=== PATIENT | female | born 1985 | race Caucasian/White ===

== ENCOUNTER 2020-04-03 15:20 | Emergency (ER) | payer MEDICAID ==
[2020-04-03 15:57] LABS: MUDS CUTOFF CONCENTRATIONS CUTOFF CONC BELOW:
[2020-04-03 15:59] LABS: BASOPHILS % (AUTO) 0.3 %; EOSINOPHILS % (AUTO) 0.3 %; HGB - HEMOGLOBIN 14.2 g/dL (12.0-16.0); LYMPHOCYTES # (AUTO) 1.6 10^3/uL (1.5-3.5); LYMPHOCYTES % (AUTO) 21.1 %; MEAN CORPUSCULAR HGB CONC 33.5 g/dL (32.0-36.0); MEAN CORPUSCULAR VOLUME 89.6 fL (81.0-99.0); MONOCYTES # (AUTO) 0.5 10^3/uL (0.0-1.0); MONOCYTES % (AUTO) 7.1 %; NEUTROPHILS # (AUTO) 5.4 10^3/uL (1.5-6.6); NEUTROPHILS % (AUTO) 70.8 %; PLT - PLATELET COUNT 219 10^3/uL (130-450); RED BLOOD COUNT 4.73 10^6/uL (4.20-5.40); RED CELL DISTRIBUTION WIDTH 12.4 % (12.0-15.0); WHITE BLOOD COUNT 7.6 x10^3/uL (4.8-10.8)
[2020-04-03 16:00] LABS: BILIRUBIN,URINE NEGATIVE (NEGATIVE); GLUCOSE, URINE (UA) NEGATIVE (NEGATIVE); KETONES,URINE (UA) 40 mg/dL (NEGATIVE); LEUKOCYTE ESTERASE, URINE NEGATIVE (NEGATIVE); NITRITE,URINE NEGATIVE (NEGATIVE); OCCULT BLOOD,URINE TRACE-LYSE (NEGATIVE); PROTEIN,URINE NEGATIVE (NEGATIVE); UROBILINOGEN,URINE 0.2 (NORMAL) E.U./dL (NORMAL)
[2020-04-03 16:02] LABS: CLARITY,URINE CLEAR (CLEAR); HCG UR QUAL POSITIVE
[2020-04-03 16:11] LABS: AMPHETAMINE SCREEN,URINE NEGATIVE (NEGATIVE); BENZODIAZEPINES SCREEN, URINE NEGATIVE (NEGATIVE); COCAINE SCREEN URINE NEGATIVE (NEGATIVE); METHADONE SCREEN, URINE NEGATIVE (NEGATIVE); METHAMPHETAMINES SCREEN, URINE NEGATIVE (NEGATIVE); OPIATE SCREEN, URINE NEGATIVE (NEGATIVE); OXYCODONE SCREEN, URINE NEGATIVE (NEGATIVE); PROPOXYPHENE SCREEN, URINE NEGATIVE (NEGATIVE); TRICYCLIC ANTIDEPRESSANT,URINE NEGATIVE (NEGATIVE)
--- NOTE | 2020-04-03 16:15 | ED Physician Documentation ---
History of Present Illness - Stated complaint Stated Complaint: SI/6 WEEKS - Chief complaint Chief Complaint: MHE - History obtained from History obtained from: Patient - History of Present Illness Timing: Today Pain level max: 0 Pain level now: 0 - Additonal information Additional information: 34-year-old female presents to the emergency department stating she has been feeling suicidal recently. Recently found out she is . Believes she is about 6 weeks . No vaginal bleeding or discharge. No abdominal or pelvic pain. Nothing makes it better or worse. Has felt suicidal recently. never been hospitalized. Increase stress at home. Review of Systems Ten Systems: 10 systems reviewed and negative Constitutional: denies: Fever, Chills GI: denies: Nausea, Vomiting, Diarrhea : reports: Now EGA Skin: denies: Rash Musculoskeletal: denies: Neck pain, Back pain Neurologic: denies: Headache PD PAST MEDICAL HISTORY - Past Medical History Past Medical History: No - Past Surgical History Past Surgical History: No - Allergies Allergies/Adverse Reactions: Allergies Allergy/AdvReac Type Severity Reaction Status Date / Time hydrocodone Allergy Emesis Verified 04/03/20 15:38 - Living Situation Living Situation: reports: With family Living Arrangement: reports: At home - Social History Does the pt smoke?: No Does the pt drink ETOH?: No Does the pt have substance abuse?: No - Family History Family history: reports: Non contributory PD ED PE NORMAL - Vitals Vital signs reviewed: Yes - General General: Alert and oriented X 3, Well developed/nourished, Other (tearful, anxious) - HEENT HEENT: PERRL - Neck Neck: Supple, no meningeal sign - Cardiac Cardiac: RRR, Strong equal pulses - Respiratory Respiratory: No respiratory distress, Clear bilaterally - Abdomen Abdomen: Soft, Non tender, Non distended - Derm Derm: Warm and dry, No rash - Extremities Extremities: No edema, No calf tenderness / cord - Neuro Neuro: Alert and oriented X 3, field contact person 2-12 intact, No motor deficit, No sensory deficit, Normal speech - Psych Psych: Normal mood, Normal affect Results - Vitals Vitals: Vital Signs - 24 hr 04/03/20 04/03/20 15:31 17:00 Temperature 37.2 C 37 C Heart Rate 89 79 Respiratory 24 18 Rate Blood Pressure 109/74 106/80 O2 Saturation 97 100 Oxygen O2 Source Room air - EKG (time done) 1801 Rate: Rate (enter#) (83) Rhythm: NSR Plaza: Normal Intervals: Normal TX QRS: Normal Ischemia: Normal ST segments - Labs Labs: Laboratory Tests 04/03/20 04/03/20 04/03/20 15:44 15:53 15:53 WBC 7.6 RBC 4.73 Hgb 14.2 Hct 42.4 MCV 89.6 MCH 30.0 MCHC 33.5 RDW 12.4 Plt Count 219 MPV 10.0 Neut # (Auto) 5.4 Lymph # (Auto) 1.6 [place] # (Auto) 0.5 Eos # (Auto) 0.0 Baso # (Auto) 0.0 Absolute Nucleated RBC 0.00 Nucleated RBC % 0.0 Sodium 136 Potassium 3.7 Chloride 105 Carbon Dioxide 20 L Anion Gap 11.0 BUN 10 Creatinine 0.6 Estimated GFR (MDRD) 114 Glucose 93 Calcium 9.2 Total Bilirubin 1.3 H AST 18 ALT 14 Alkaline Phosphatase 39 L Total Protein 7.4 Albumin 4.4 Globulin 3.0 Albumin/Globulin Ratio 1.5 Lipase 26 TSH HCG, Quant Urine Color YELLOW Urine Clarity CLEAR Urine pH 6.0 Ur Specific [place] 1.025 Urine Protein NEGATIVE Urine Glucose (UA) NEGATIVE Urine Ketones 40 H Urine Occult Blood TRACE-LYSE Urine Nitrite NEGATIVE Urine Bilirubin NEGATIVE Urine Urobilinogen 0.2 (NORMAL) Ur Leukocyte Esterase NEGATIVE Ur Microscopic Review NOT INDICATED Urine Culture Comments NOT INDICATED Urine HCG, Qual POSITIVE Salicylates < 6.0 Urine Opiates Screen NEGATIVE Ur Oxycodone Screen NEGATIVE Urine Methadone Screen NEGATIVE Ur Propoxyphene Screen NEGATIVE Acetaminophen < 10 L Ur Barbiturates Screen NEGATIVE Ur Tricyclics Screen NEGATIVE Ur Phencyclidine Scrn NEGATIVE Ur Amphetamine Screen NEGATIVE U Methamphetamines Scrn NEGATIVE U Benzodiazepines Scrn NEGATIVE Urine Cocaine Screen NEGATIVE U Cannabinoids Screen POSITIVE H Ethyl Alcohol < 5.0 04/03/20 04/03/20 15:53 15:53 WBC RBC Hgb Hct MCV MCH MCHC RDW Plt Count MPV Neut # (Auto) Lymph # (Auto) [place] # (Auto) Eos # (Auto) Baso # (Auto) Absolute Nucleated RBC Nucleated RBC % Sodium Potassium Chloride Carbon Dioxide Anion Gap BUN Creatinine Estimated GFR (MDRD) Glucose Calcium Total Bilirubin AST ALT Alkaline Phosphatase Total Protein Albumin Globulin Albumin/Globulin Ratio Lipase TSH 1.18 HCG, Quant 02818.00 Urine Color Urine Clarity Urine pH Ur Specific [place] Urine Protein Urine Glucose (UA) Urine Ketones Urine Occult Blood Urine Nitrite Urine Bilirubin Urine Urobilinogen Ur Leukocyte Esterase Ur Microscopic Review Urine Culture Comments Urine HCG, Qual Salicylates Urine Opiates Screen Ur Oxycodone Screen Urine Methadone Screen Ur Propoxyphene Screen Acetaminophen Ur Barbiturates Screen Ur Tricyclics Screen Ur Phencyclidine Scrn Ur Amphetamine Screen U Methamphetamines Scrn U Benzodiazepines Scrn Urine Cocaine Screen U Cannabinoids Screen Ethyl Alcohol - Rads (name of study) OB US Radiology: Prelim report reviewed, EMP read contemporaneously, See rad report (1. [place] living intrauterine at 5 weeks 6 days based on today's crown-rump length. heart rate 101 bpm. This is concerning for bradycardia in this early fetus. -Recommend follow-up OB ultrasound. 2. No perigestational hemorrhage. ) PD MEDICAL DECISION MAKING - ED course Complexity details: reviewed results, re-evaluated patient, considered differential, d/w patient, d/w law firm consultant ED course: 34-year-old female with suicidal ideation and depression. She is 6 weeks . Social work was consulted and evaluated the patient. She is voluntary for psychiatric care. She is at high risk for suicide, therefore if she were to change her mind, I would consider her involuntary and have the DCR evaluate her. Patient signed out to the [facility] emergency department physician. Departure - Departure Clinical Impression: Suicidal ideation Depression Qualifiers: Depression Type: unspecified Qualified Code(s): F32.9 - Major depressive disorder, single episode, unspecified Qualifiers: Weeks of gestation: less than 8 weeks Qualified Code(s): Z3A.01 - Less than 8 weeks gestation of Condition: Stable
[2020-04-03 16:22] LABS: ACETAMINOPHEN < 10 ug/mL (10-30); ALBUMIN 4.4 g/dL (3.2-5.5); ALBUMIN/GLOBULIN RATIO 1.5 (1.0-2.2); ALKALINE PHOSPHATASE 39 IU/L (42-121); ALT ALANINE AMINOTRANSFERASE 14 IU/L (10-60); AST ASPARTATE AMINOTRANSFERASE 18 IU/L (10-42); BILIRUBIN,TOTAL 1.3 mg/dL (0.2-1.0); BUN - BLOOD UREA NITROGEN 10 mg/dL (6-20); CALCIUM 9.2 mg/dL (8.5-10.3); CARBON DIOXIDE - CO2 20 mmol/L (21-32); CHLORIDE 105 mmol/L (101-111); CREATININE 0.6 mg/dL (0.4-1.0); GLUCOSE 93 mg/dL (70-100); LIPASE 26 U/L (22-51); SALICYLATE < 6.0 mg/dL; SODIUM 136 mmol/L (135-145); TOTAL PROTEIN 7.4 g/dL (6.7-8.2)
--- NOTE | 2020-04-03 19:42 | Ultrasound Report ---
PROCEDURE: OB First Trimester w/TV INDICATIONS: approx 6 weeks preg, pelvic pain OUTSIDE/PRIOR DATING DATA: Last menstrual period (LMP): Unknown. LMP-based estimated date of delivery (FRANK): Unknown. First dating scan (date and location): 04/03/2020. Estimated date of delivery (FRANK) from first dating scan: 07/31/2019. TECHNIQUE: Real-time scanning was performed of the fetus and maternal pelvic organs, with image documentation. Endovaginal scanning was also performed to better visualize the fetus and maternal ovaries. COMPARISON: None. FINDINGS: Embryo: [place]-rump length measuring 0.24 cm, gestational age 5 weeks 6 days. heart rate 101 BP M. Yolk sac is seen. No perigestational hemorrhage. Measurement variability in dating: +/- 4 weeks by LMP, +/- 7 days by mean sac diameter (use before 6 weeks gestation if crown-rump length not able to be measured), +/- 5 days by crown-rump length (6-12 weeks gestation). Maternal organs: Ovaries are within normal limits. Right ovarian anechoic cyst measuring 3.2 x 2.8 x 1.7 cm. Left corpus luteum measuring at 2.2 x 1.9 x 1 cm. IMPRESSION: 1. [place] living intrauterine at 5 weeks 6 days based on today's crown-rump length. Feta l heart rate 101 bpm. This is concerning for bradycardia in this early fetus. -Recommend follow-up OB ultrasound. 2. No perigestational hemorrhage. Reviewed by: Ezequiel Treviño MD on 04/03/2020 7:41 PM PDT Approved by: Ezequiel Treviño MD on 04/03/2020 7:41 PM PDT Station ID: [id number]
[2020-04-04] MEDS ORDERED: FAMOTIDINE 20 MG TABLET PO STA (01:23)
[2020-04-04] MEDS ORDERED: ONDANSETRON ODT 4 MG TABLET TL STA (06:05)
--- NOTE | 2020-04-04 19:29 | ED Physician Documentation ---
ED Addendum - Addendum Addendum: 04/04/20 19:29 34-year-old woman presented with suicidal ideation and plan, early without complication by ultrasound. Seen extensively by social work, patient voicing wanting to leave. This caused concern about her safety and subsequently a telepsychiatric consultation was done and I spoke with the psychiatrist who felt that given the circumstances she should be detained and evaluated by the DCR for an CHANEL. 04/04/20 20:06 I discussed the above with the patient and her . Neither were happy with the prospect of involuntary fpc. They are understanding though.
--- NOTE | 2020-04-04 19:51 | TELEPSYCH PHYS NOTE ---
Telepsych Note - CHIEF COMPLAINT/HX OF PRESENT ILLNESS Cheif Complaint and History of Present Illness: Name: Ameena Rider : 85 Date: 03/17/20 Time: 10:10pm Location of patient: [facility] Location of doctor: [facility] Length of consult: 40min This evaluation was conducted via telepsychiatry with the assistance of onsite staff Chief Complaint: SI with plans History of Present Illness: Pt seen via televideo with the help of onsite staff. Pt is a 34 yo female with hx of depression, anxiety. She reports a traumatic childhood. Pt presented to the hospital yesterday, BIB after she reported to her , suicidal thoughts with specific plan. She reported a several month period of worsening depressive sxs including intermittent SI. She reported to staff that the thoughts intensified over the past week. In the ED she was noted to be extremely tearful and emotional. Noted to staff SWer ongoing suicidality with plan(s). She reported potential plans to jump [place] the [place], to overdose on pills or cut her wrist. Pt was initially voluntary for inpt treatment however per staff, requested discharge home today. Chart was reviewed and appreciated. Pt seen and evaluated. Pt is cooperative however minimizing earlier statements to SW and ED staff. She initially tells machine sign writer that she came in due to having a panic attack. She does not mention at all SI thoughts until referenced to b this machine sign writer. She minimizes stating the plans were just thoughts. She admits to worsening mood sxs due to multiple stressors: Stressors include: Adjusting to new job with variable night and day shifts unemployed Feels that she also feels she does much of the work maintaining the home as well. Recently found out that she is . States she believed that the may have actually be cancer. [place] unimportant. Covid Pandemic. Traumatic childhood Financial concerns. Pt states she was overwhelmed by all of her stressors. States she has experienced suicidal thoughts in her teens as well related to her traumatic childhood. Never attempted however thought of plans. States she never acted as she did not want to burden her family with the cost of a . States the protective factor currently to deter suicide is her . However also admits that her suicidal thoughts increased after she found out that she was . Spoke to the pts , Shanti via phone. He reports pt has made SI comments and threats in the past. She has also in the past picked up a knife. Typically, around arguments. States they have been arguing related to his unemployment. States she gets in her mind she is incapable of doing something and it is hard to change her mind. States he is unsure of why they argued yesterday. States he does not believe she will ultimately harm herself however states, it cant be healthy to feel this way. States he gets concerned when she is in a state that she cannot calm down or get the negative thoughts out of her head. On ROS, pt denies AVHs, delusions nor HI. Denies current SI, however initially presented to the hospital due to SI with specific plan. Pt now recanting farhad ier reported thoughts and requesting to go home. She is also minimizing her symptoms. She presents with multiple risk factors including multiple stressors with poor coping. Pt presents as a danger to herself ad requires acute inpt psychiatric admission for safety, stabilization and treatment. Pt is no longer voluntary for inpt treatment and requires screening for involuntary commitment. Collateral: Staff, EMR. Shanti, SEE HPI SI/attempts/Self harm: Prior ideation with plans. No attempts. HI/Violence: denies Trauma history: reports traumatic childhood Sex/human trafficking: none reported Access to guns: Denies Legal: denies Psychiatric History/Treatment History: outpt treatment in the past, no current outpt treatment. Drug/Alcohol History: cannabis Medical History: GERD, Ovarian Cyst, . Medications & Freq: none currently Allergies: hydrocodone Sleep: decreased, states she uses cannabis to help with sleep. Family Psych History/History of suicide: mother with depression, sister with bipolar disorder. No known family hx of suicidality. Social History Relationship status: Employment: employed Stressors: multiple with poor coping. Strengths/supports: Mental Status Exam: Appearance and attire: hospital attire Attitude and behavior: guarded Affect and mood: depressed/ constricted Association and thought processes: minimizing, omissions. Thought content: Denies delusions. Denies HI. Denies current SI however minimizing. Presented to the ED with SI with specific plan. Perception: Denies AVHs Sensorium, memory, and orientation: AxOx3 Intellectual functioning: average Insight and judgment: impaired. - SI/HI/SELF HARM SI/HI/SELF HARM (CURRENT OR HISTORY OF):: SI - PSYCHIATRIC HX/TREATMENT HX Psychiatric: Depression, Anxiety - DRUG/ALCOHOL HX Substance Use and Type: Marijuana - MEDICAL HX Does the pt have a hx of MRSA?: No Neurological History: None Eyes, Ears, Nose, Throat: None Cardiovascular: Valve disorder Respiratory: Asthma Skin: None Endocrine/Autoimmune: None Gastrointestinal: GERD Is Patient ?: Yes Urinary: None Musculoskeletal: None Blood Disorders: Anemia - ALLERGIES Allergies (as last confirmed): Allergies Allergy/AdvReac Type Severity Reaction Status Date / Time hydrocodone Allergy Emesis Verified 04/03/20 15:38 - TREATMENT/PHARMACOLOGICAL RECOMMENDATION Treatment - Pharmacological - Therapy Recommendations: Diagnosis: MDD, recurrent, severe, R/O PTSD Impression/Risk Assessment: Pt denies current SI, however initially presented to the hospital due to SI with specific plan. Pt now recanting earlier reported thoughts and requesting to go home. She is also minimizing her symptoms. She presents with multiple risk factors including multiple stressors with poor coping. Pt presents as a danger to herself ad requires acute inpt psychiatric admission for safety, stabilization and treatment. Pt is no longer voluntary for inpt treatment and requires screening for involuntary commitment. Treatment Recommendations: Pt requires acute inpt psychiatric admission For safety, stabilization and treatment Pt is NOT voluntary for inpt treatment and - TIME SPENT & PROVIDER LOCATION Telepsych consultation conducted via videoconferencing: Yes List names and roles of persons who participated in consult: shanti lerma stridiron Telepsych Provider Location: [place] Time Telepsych consult began: 22:00 Time Telepsych consult completed: 22:40
--- NOTE | 2020-04-04 21:56 | ED Physician Documentation ---
ED Addendum - Addendum Addendum: 04/04/20 21:54 DCR Alyssa Eli saw pt at length. She is not detaining her, therefore I cannot hold her against her will any longer. Alyssa will follow up with her personally as an outpatient. Disposition discharged home, condition stable, Diagnoses: 1. Early 2. Depression
[2020-04-04] MEDS ORDERED: METOCLOPRAMIDE 10 MG TABLET PO STA (21:59)
[2020-04-04 22:16] VITALS: BP 118/83
== END 2020-04-04 22:16 | disposition home or self-care (01) ==
LOC: ED 15:20
DX: O99.341 Other mental disorders complicating pregnancy, first trimester (principal); F33.2 Major depressive disorder, recurrent severe without psychotic features; R45.851 Suicidal ideations; Z3A.01 Less than 8 weeks gestation of pregnancy; Z20.828 Contact with and (suspected) exposure to other viral communicable diseases
CPT/HCPCS: 36415; 76801; 76817; 76857; 80320; 80329; 81003; 81025; 83690; 84702; 87635; 93005; 99284; 99285; A9270; Q0162; 80053; 80306; 80307; 81001; 84443; 85025; 87086

== ENCOUNTER 2020-04-07 10:58 | Outpatient (CLI) | payer MEDICAID | END 2020-04-07 10:59 | disposition critical access hospital (66) | LOC: EMS 10:58 | PROVIDERS: ATTEND Surgery | DX: O99.891 Other specified diseases and conditions complicating pregnancy (principal); R45.851 Suicidal ideations; O99.341 Other mental disorders complicating pregnancy, first trimester; Z3A.01 Less than 8 weeks gestation of pregnancy | CPT/HCPCS: A0425; A0429; A0999 ==

== ENCOUNTER 2020-04-07 11:19 | Emergency (ER) | payer MEDICAID ==
--- NOTE | 2020-04-07 11:45 | ED Physician Documentation ---
History of Present Illness - Stated complaint Stated Complaint: SI - Chief complaint Chief Complaint: MHE - History obtained from History obtained from: Patient - History of Present Illness Timing: Prior to arrival - Additonal information Additional information: 34-year-old female presents the emergency department for evaluation of thoughts that are racing out of control. She reports to me that she does not deserve her life, or her . She is afraid that should she lose her she will lose her entire life. She denies thoughts of wanting to but cannot control her emotions anymore. She was seen here about 4 days ago over the weekend for thoughts of self-harm. At the time of initial evaluation, a telepsych consult was done. Though the patient initially presented as voluntary she later recanted. Tele-psych felt that they were to many risk factors for her to contract for safety therefore DCR was contacted. Once DCR evaluated the patient they felt that she did not meet the criteria for involuntary placement and at that point patient was dc home Since being discharged home the patient reports that she was unable to speak with the counselor until late yesterday evening. This morning she and her had an argument and felt her emotions were out of control. The counselor then called 911 and patient was brought into the ER for further evaluation. At the time of my evaluation patient is very tearful and guarded. She does report to me however that she wishes to be voluntarily placed at a psychiatric treatment hospital in order to ensure that she remains safe, that her can continue and so that she can get control of her thoughts and emotions Patient denies lower pelvic pain vaginal bleeding cramping or loss of fluids. An OB ultrasound completed 04/03/2020 showed that she was approximately 5 weeks 6 days with IUP. Review of Systems Constitutional: denies: Fever, Chills Eyes: reports: Reviewed and negative Nose: reports: Reviewed and negative Throat: reports: Reviewed and negative Cardiac: reports: Reviewed and negative Respiratory: reports: Dyspnea GI: reports: Nausea. denies: Abdominal Swelling, Vomiting, Constipation, Diarrhea : reports: Reviewed and negative Skin: reports: Reviewed and negative Musculoskeletal: reports: Reviewed and negative Neurologic: reports: Reviewed and negative Psychiatric: reports: Reviewed and negative PD PAST MEDICAL HISTORY - Past Medical History Cardiovascular: Valve disorder Respiratory: Asthma Neuro: None Endocrine/Autoimmune: None GI: GERD TECHNICAL TRAINING INSTRUCTOR: None : None HEENT: None Psych: Depression, Anxiety Musculoskeletal: None Derm: None - Past Surgical History Past Surgical History: No HEENT: Myringotomy (tubes) - Present Medications Home Medications: Ambulatory Orders Medication Instructions Recorded Confirmed Metoclopramide [Reglan] 10 mg PO Q6H PRN #20 tablet 04/04/20 04/07/20 Omeprazole 20 mg PO DAILY #30 capsule. 04/04/20 04/07/20 - Allergies Allergies/Adverse Reactions: Allergies Allergy/AdvReac Type Severity Reaction Status Date / Time hydrocodone Allergy Emesis Verified 04/07/20 11:27 - Social History Does the pt smoke?: No Smoking Status: Former smoker Does the pt drink ETOH?: No Does the pt have substance abuse?: No - Immunizations Immunizations are current?: Yes - POLST Patient has POLST: No PD ED PE EXPANDED - General General: Alert, Anxious, Other (crying, tearful) - HEENT HEENT: PERRL, EOMI - Neck Neck: Supple w/out meningeal sx. No: Limited ROM - Cardiac Cardiac: Regular Rate, Regular Rhythm, Radial strong equal, Pedal strong equal, Cap refill < 2 sec. No: Murmur Present - Respiratory Respiratory: Clear to ausultation jazz. No: Distress, Labored - Abdomen Abdomen: Normal Bowel sounds. No: Tender to palpation - Extremities Extremities: Normal, Pedal Pulses Present. No: Tenderness, Right calf TTP/cord, Left calf TTP/cord - Neuro Neuro: Alert and Oriented X 3, CNII-XII intact - GCS Eye Opening: Spontaneous Motor: Obeys Commands Verbal: Oriented Total: 15 - Psych Psych: Tearful, Poor eye contact, Anxious Results - Vitals Vitals: Vital Signs - 24 hr 04/07/20 04/07/20 11:28 12:51 Temperature 36.8 C 36.8 C Heart Rate 95 78 Respiratory 24 18 Rate Blood Pressure 116/70 112/73 O2 Saturation 99 100 Oxygen O2 Source Room air - Labs Labs: Laboratory Tests 04/07/20 04/07/20 04/07/20 11:55 12:11 12:11 WBC 5.5 RBC 4.33 Hgb 13.3 Hct 38.0 MCV 87.8 MCH 30.7 MCHC 35.0 RDW 12.1 Plt Count 194 MPV 9.7 Neut # (Auto) 3.4 Lymph # (Auto) 1.6 [place] # (Auto) 0.5 Eos # (Auto) 0.0 Baso # (Auto) 0.0 Absolute Nucleated RBC 0.00 Nucleated RBC % 0.0 Sodium 140 Potassium 3.6 Chloride 107 Carbon Dioxide 25 Anion Gap 8.0 BUN 8 Creatinine 0.6 Estimated GFR (MDRD) 114 Glucose 90 Calcium 9.2 Total Bilirubin 1.0 AST 16 ALT 11 Alkaline Phosphatase 35 L Total Protein 6.7 Albumin 4.1 Globulin 2.6 Albumin/Globulin Ratio 1.6 Lipase 25 TSH Urine Color YELLOW Urine Clarity CLEAR Urine pH 8.5 H Ur Specific [place] 1.015 Urine Protein NEGATIVE Urine Glucose (UA) NEGATIVE Urine Ketones NEGATIVE Urine Occult Blood NEGATIVE Urine Nitrite NEGATIVE Urine Bilirubin NEGATIVE Urine Urobilinogen 0.2 (NORMAL) Ur Leukocyte Esterase NEGATIVE Ur Microscopic Review NOT INDICATED Urine Culture Comments NOT INDICATED Salicylates < 6.0 Urine Opiates Screen NEGATIVE Ur Oxycodone Screen NEGATIVE Urine Methadone Screen NEGATIVE Ur Propoxyphene Screen NEGATIVE Acetaminophen < 10 L Ur Barbiturates Screen NEGATIVE Ur Tricyclics Screen NEGATIVE Ur Phencyclidine Scrn NEGATIVE Ur Amphetamine Screen NEGATIVE U Methamphetamines Scrn NEGATIVE U Benzodiazepines Scrn NEGATIVE Urine Cocaine Screen NEGATIVE U Cannabinoids Screen POSITIVE H Ethyl Alcohol < 5.0 04/07/20 12:11 WBC RBC Hgb Hct MCV MCH MCHC RDW Plt Count MPV Neut # (Auto) Lymph # (Auto) [place] # (Auto) Eos # (Auto) Baso # (Auto) Absolute Nucleated RBC Nucleated RBC % Sodium Potassium Chloride Carbon Dioxide Anion Gap BUN Creatinine Estimated GFR (MDRD) Glucose Calcium Total Bilirubin AST ALT Alkaline Phosphatase Total Protein Albumin Globulin Albumin/Globulin Ratio Lipase TSH 1.05 Urine Color Urine Clarity Urine pH Ur Specific [place] Urine Protein Urine Glucose (UA) Urine Ketones Urine Occult Blood Urine Nitrite Urine Bilirubin Urine Urobilinogen Ur Leukocyte Esterase Ur Microscopic Review Urine Culture Comments Salicylates Urine Opiates Screen Ur Oxycodone Screen Urine Methadone Screen Ur Propoxyphene Screen Acetaminophen Ur Barbiturates Screen Ur Tricyclics Screen Ur Phencyclidine Scrn Ur Amphetamine Screen U Methamphetamines Scrn U Benzodiazepines Scrn Urine Cocaine Screen U Cannabinoids Screen Ethyl Alcohol PD MEDICAL DECISION MAKING - ED course Complexity details: reviewed results, considered differential, d/w patient ED course: 34-year-old female who is just over 6 weeks presents to the emergency department with significant depression, racing thoughts and feelings that she does not deserve her life. She was seen 4 days ago for similar. At this time patient is voluntary for inpatient psychiatric placement. We will ask for social work to consult. 1237: Patient is medically cleared for voluntary psychiatric placement. orchard worker will be working on this. 1522: Sent has been accepted to [facility]. Transfer and bed pending. Pt remain in agreement with voluntary psychiatric placement for management of depression Departure - Departure Disposition: 65 Psych Hosp/Unit DC/Xfer Clinical Impression: and not yet delivered in first trimester Depression Qualifiers: Depression Type: other depression Qualified Code(s): F32.89 - Other specified depressive episodes
[2020-04-07 12:08] LABS: MUDS CUTOFF CONCENTRATIONS CUTOFF CONC BELOW:
[2020-04-07 12:11] LABS: BILIRUBIN,URINE NEGATIVE (NEGATIVE); GLUCOSE, URINE (UA) NEGATIVE (NEGATIVE); KETONES,URINE (UA) NEGATIVE (NEGATIVE); LEUKOCYTE ESTERASE, URINE NEGATIVE (NEGATIVE); NITRITE,URINE NEGATIVE (NEGATIVE); OCCULT BLOOD,URINE NEGATIVE (NEGATIVE); PH,URINE 8.5 PH (5.0-7.5); PROTEIN,URINE NEGATIVE (NEGATIVE); UROBILINOGEN,URINE 0.2 (NORMAL) E.U./dL (NORMAL)
[2020-04-07 12:15] LABS: CLARITY,URINE CLEAR (CLEAR)
[2020-04-07 12:18] LABS: BASOPHILS % (AUTO) 0.4 %; EOSINOPHILS % (AUTO) 0.2 %; HGB - HEMOGLOBIN 13.3 g/dL (12.0-16.0); LYMPHOCYTES # (AUTO) 1.6 10^3/uL (1.5-3.5); LYMPHOCYTES % (AUTO) 28.4 %; MEAN CORPUSCULAR HEMOGLOBIN 30.7 pg (27.0-31.0); MEAN CORPUSCULAR VOLUME 87.8 fL (81.0-99.0); MEAN PLATELET VOLUME 9.7 fL (7.9-10.8); MONOCYTES # (AUTO) 0.5 10^3/uL (0.0-1.0); MONOCYTES % (AUTO) 8.7 %; NEUTROPHILS # (AUTO) 3.4 10^3/uL (1.5-6.6); NEUTROPHILS % (AUTO) 61.9 %; PLT - PLATELET COUNT 194 10^3/uL (130-450); RED BLOOD COUNT 4.33 10^6/uL (4.20-5.40); RED CELL DISTRIBUTION WIDTH 12.1 % (12.0-15.0); WHITE BLOOD COUNT 5.5 x10^3/uL (4.8-10.8)
[2020-04-07 12:21] LABS: AMPHETAMINE SCREEN,URINE NEGATIVE (NEGATIVE); BENZODIAZEPINES SCREEN, URINE NEGATIVE (NEGATIVE); COCAINE SCREEN URINE NEGATIVE (NEGATIVE); METHADONE SCREEN, URINE NEGATIVE (NEGATIVE); METHAMPHETAMINES SCREEN, URINE NEGATIVE (NEGATIVE); OPIATE SCREEN, URINE NEGATIVE (NEGATIVE); OXYCODONE SCREEN, URINE NEGATIVE (NEGATIVE); PROPOXYPHENE SCREEN, URINE NEGATIVE (NEGATIVE); TRICYCLIC ANTIDEPRESSANT,URINE NEGATIVE (NEGATIVE)
[2020-04-07 12:35] LABS: ACETAMINOPHEN < 10 ug/mL (10-30); ALBUMIN 4.1 g/dL (3.2-5.5); ALBUMIN/GLOBULIN RATIO 1.6 (1.0-2.2); ALKALINE PHOSPHATASE 35 IU/L (42-121); ALT ALANINE AMINOTRANSFERASE 11 IU/L (10-60); AST ASPARTATE AMINOTRANSFERASE 16 IU/L (10-42); BUN - BLOOD UREA NITROGEN 8 mg/dL (6-20); CALCIUM 9.2 mg/dL (8.5-10.3); CARBON DIOXIDE - CO2 25 mmol/L (21-32); CHLORIDE 107 mmol/L (101-111); CREATININE 0.6 mg/dL (0.4-1.0); GLUCOSE 90 mg/dL (70-100); LIPASE 25 U/L (22-51); SALICYLATE < 6.0 mg/dL; SODIUM 140 mmol/L (135-145); TOTAL PROTEIN 6.7 g/dL (6.7-8.2)
[2020-04-07 12:52] VITALS: BP 112/73
== END 2020-04-07 17:33 ==
LOC: EDUNIT# → ED 11:19
DX: O99.341 Other mental disorders complicating pregnancy, first trimester (principal); F32.89 Other specified depressive episodes; R45.851 Suicidal ideations; Z3A.01 Less than 8 weeks gestation of pregnancy; Z20.828 Contact with and (suspected) exposure to other viral communicable diseases; Z87.891 Personal history of nicotine dependence
CPT/HCPCS: 36415; 80053; 80306; 80307; 80320; 80329; 81001; 81003; 83690; 84443; 85025; 87086; 99284; 99285